=== PATIENT | female | born 1950 | race Two or more races ===

== ENCOUNTER 2018-02-18 12:56 | Day surgery (SDC) | payer MEDICARE, BC ==
[2018-02-18] MEDS: hydrALAzine 20 MG INJ IV ×2 (13:53→17:35)
[2018-02-18] MEDS ORDERED: CEFAZOLIN 2 GM/50 ML (PMX) 50 ML IVPB (14:00)
[2018-02-18] MEDS ORDERED: LACTATED RINGER'S 1,000 ML IV* (14:00)
[2018-02-18] MEDS ORDERED: LIDOCAINE 1% (MPF) 30 ML INJ (15:29)
[2018-02-18] MEDS ORDERED: BUPIVACAINE 0.5% (SDV) 30 ML INJ (15:30)
[2018-02-18] MEDS ORDERED: POLYMYXIN/BACITRACIN 1L IRRIG (15:30)
[2018-02-18] MEDS ORDERED: MIDAZOLAM 1 MG/ML 2 ML INJ (15:55)
[2018-02-18] MEDS: POLYMYXIN/BACITRACIN 1L IRRIG IRR (16:19)
[2018-02-18] MEDS ORDERED: hydrALAzine 20 MG INJ (16:39)
[2018-02-18] MEDS ORDERED: CEFAZOLIN 1 GM INJ (16:58)
[2018-02-18] MEDS ORDERED: PROPOFOL 20 ML (16:58)
[2018-02-18] MEDS ORDERED: LIDOCAINE 2% (SDV) 5 ML INJ (16:58)
[2018-02-18] MEDS ORDERED: ROPIVACAINE 0.5 % 30 ML VIAL (16:59)
[2018-02-18] MEDS ORDERED: ONDANSETRON 4 MG INJ (16:59)
[2018-02-18] MEDS ORDERED: NALOXONE (0.4 MG/ML) INJ IV (17:30)
[2018-02-18] MEDS ORDERED: HYDROmorphONE (0.2 MG/ML) 10ML SYG IV ×2 (17:30)
[2018-02-18] MEDS ORDERED: DIPHENHYDRAMINE 50 MG INJ IV (17:30)
[2018-02-18] MEDS ORDERED: METOCLOPRAMIDE 10 MG INJ IV (17:30)
[2018-02-18] MEDS ORDERED: LABETALOL HCL 20MG INJ IV (17:30)
[2018-02-18] MEDS: MEPERIDINE 25 MG INJ IV (17:35)
[2018-02-18] MEDS: ONDANSETRON 4 MG INJ IV (17:35)
[2018-02-18] MEDS: KETOROLAC 30 MG INJ IV (17:36)
[2018-02-18] MEDS: FENTAnyl 50 MCG/ML VIAL IV ×4 (17:40→18:04)
== END 2018-02-18 19:08 | disposition home or self-care (01) ==
LOC: SDS 12:56
DX: S52.571D Other intraarticular fracture of lower end of right radius, subsequent encounter for closed fracture with routine healing (principal); X58.XXXD Exposure to other specified factors, subsequent encounter; G56.01 Carpal tunnel syndrome, right upper limb; E11.9 Type 2 diabetes mellitus without complications; I10 Essential (primary) hypertension; E78.5 Hyperlipidemia, unspecified; E66.9 Obesity, unspecified; Z68.35 Body mass index [BMI] 35.0-35.9, adult
CPT/HCPCS: 25609; 73110-RT; 82962